=== PATIENT | male | born 1960 | race Caucasian/White ===

== ENCOUNTER 2018-01-16 08:35 | Emergency (ER) | payer BC ==
[~2018-01-16] VITALS: Ht 190.5 cm; Wt 115.9 kg
[~2018-01-16 08:35] MED LIST: DORYX150 MG; FLEXERIL10 MG PO; IBUPROFEN PM C1 EACH PO; IBUPROFEN200 M1 PO; KEFLEX500 MG PO; NAPROSYN500 MG PO; NORCO 5/3251 TABLET PO; TYLENOL REGULA325 MG PO; TYLENOL WITH C1 EACH PO
[2018-01-16 08:42] VITALS: BP 109/77
== END 2018-01-16 10:29 | disposition left against medical advice (07) ==
LOC: EME 08:35
DX: M54.5 Low back pain (principal); Z53.21 Procedure and treatment not carried out due to patient leaving prior to being seen by health care provider